=== PATIENT | male | born 1960 | race Two or more races ===

== ENCOUNTER 2021-01-17 19:26 | Emergency (ER) | payer OTHER ==
[~2021-01-17] VITALS: Ht 175.3 cm; Wt 81.6 kg
--- NOTE | 2021-01-17 20:11 | Emergency Room Report ---
History of Present Illness General Chief Complaint: Chest Pain Source: Patient Present Illness HPI Disclaimer: Please note that this report is being documented using [employer] technology. This can lead to erroneous entry secondary to incorrect interpretation by the dictating instrument. HPI: 60-year-old male presents for evaluation of chest pain. Symptoms began suddenly at this afternoon approximately 4 PM. 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 He states he felt sudden pressure over the left side of the chest and over the upper back. He felt weak and near syncope but was caught by a coworker. Denied diaphoresis nausea or vomiting. Chest pain resolved within half an hour. He denies difficulty breathing, shortness of breath, cough, fever or chills. No recent Covid test. Denies vomiting, diarrhea or other changes in his health otherwise. He was in his usual state of health until 4 PM this af ternoon. Did not take any medication prior to arrival aside from his usual propranolol for hypertension and Metformin for diabetes. Non-smoker. Denies alcohol or drugs. PMH: Diabetes, hypertension PSH: Denied Allergies: Denied Social Hx: Denies alcohol, tobacco or drug use Allergies: Coded Allergies: No Known Allergies (Unverified , 01/17/21) COVID-19 Screening Contact w/high risk pt: No Experienced COVID-19 symptoms?: No COVID-19 Testing performed STAFF PSYCHIATRIST: No COVID-19 Screening: Negative COVID-19 COVID-19 Testing Source: [facility] Documentation-PMH Hx Diabetes: Yes Review of Systems All Other Systems: negative except mentioned in HPI Physical Exam Vital Signs Date Time Temp Pulse Resp B/P (MAP) Pulse Ox O2 Delivery O2 Flow Rate FiO2 01/17/21 19:42 97.7 77 20 149/85 (106) 98 Room Air General: Awake and alert, no acute distress HEENT: NC/AT. EOMI. Cardiovascular: RRR. S1 and S2 normal. No murmur appreciated Resp: Normal work of breathing. No cough, wheezing or crackles appreciated Abdomen: Abdomen is soft, nondistended. Nontender Skin: Intact. No abrasions, laceration or rash over the exposed skin MSK: Normal tone and bulk. Moving all extremities. No obvious deformity. Neuro: Awake and alert. Mentating appropriately. Medical Decision Making Diagnostic Impression: Primary Impression: Chest pain ER Course 60-year-old male presenting for evaluation of chest pain. Differential includes but is not limited to ACS, arrhythmia, orthostatic hypotension, vasovagal syncope, dehydration, electrolyte abnormality, pneumonia, pneumothorax, PE among others. Currently chest pain-free. Given aspirin. EKG shows sinus rhythm with slight left axis but no ischemic changes. Chest x-ray unremarkable. Labs including troponin D-dimer negative. Patient is well-appearing though his story is somewhat concerning for cardiac disease. I discussed admission with the patient however he declined. He states he has a primary doctor and he can call them in the morning to set up outpatient testing and reevaluation. He also stated he would return if symptoms returned or if he developed any new symptoms. Patient appears very reasonable and trustworthy and I believe that he would come back should he experience any return of symptoms. Will discharge with PMD follow-up. Laboratory Tests Test 01/17/21 20:09 White Blood Count 3.3 K/UL (4.8-10.8) L Red Blood Count 4.60 M/UL (4.70-6.10) L Hemoglobin 13.5 G/DL (14.2-18.0) L Hematocrit 40.6 % (42.0-52.0) L Mean Corpuscular Volume 88 FL (80-99) Mean Corpuscular Hemoglobin 29.3 PG (27.0-31.0) Mean Corpuscular Hemoglobin Concent 33.3 G/DL (32.0-36.0) Red Cell Distribution Width 13.4 % (11.6-14.8) Platelet Count 304 K/UL (150-450) Mean Platelet Volume 7.7 FL (6.5-10.1) Neutrophils (%) (Auto) % (45.0-75.0) Lymphocytes (%) (Auto) % (20.0-45.0) Monocytes (%) (Auto) % (1.0-10.0) Eosinophils (%) (Auto) % (0.0-3.0) Basophils (%) (Auto) % (0.0-2.0) Differential Total Cells Counted 100 Neutrophils % (Manual) 32 % (45-75) L Lymphocytes % (Manual) 54 % (20-45) H Monocytes % (Manual) 10 % (1-10) Eosinophils % (Manual) 4 % (0-3) H Basophils % (Manual) 0 % (0-2) Band Neutrophils 0 % (0-8) Platelet Estimate Adequate Platelet Morphology Normal Red Blood Cell Morphology Normal D-Dimer < 0.19 mg/L FEU Sodium Level 136 MMOL/L (136-145) Potassium Level 3.8 MMOL/L (3.5-5.1) Chloride Level 100 MMOL/L (98-107) Carbon Dioxide Level 28 MMOL/L (21-32) Anion Gap 8 mmol/L (5-15) Blood Urea Nitrogen 17 mg/dL (7-18) Creatinine 1.1 MG/DL (0.55-1.30) Estimated Glomerular Filtration Rate > 60 mL/min (>60) Glucose Level 165 MG/DL (74-106) H Calcium Level 9.6 MG/DL (8.5-10.1) Total Bilirubin 0.3 MG/DL (0.2-1.0) Aspartate Amino Transferase (AST) 17 U/L (15-37) Alanine Aminotransferase (ALT) 26 U/L (12-78) Alkaline Phosphatase 49 U/L (46-116) Troponin I 0.000 ng/mL (0.000-0.056) Total Protein 7.7 G/DL (6.4-8.2) Albumin 4.5 G/DL (3.4-5.0) Globulin 3.2 g/dL Albumin/Globulin Ratio 1.4 (1.0-2.7) EKG Diagnostic Results Troponin ordered: Yes When was troponin ordered?: Jan 17, 2021 EKG Time: 19:57 Rhythm: NSR ST Segments: no acute changes Other Impression Sinus rhythm, left axis, normal intervals, no ST segment changes ASA given to the pt in ED: Yes Rhythm Strip Diag. Results Rhythm Strip Time: 19:57 EP Interpretation: yes Rate: 57 Rhythm: NSR, no PVC's, no ectopy Chest X-Ray Diagnostic Results Chest X-Ray Diagnostic Results : Chest X-Ray Ordered: Yes # of Views/Limited/Complete: 1 View Indication: Chest Pain EP Interpretation: Yes Interpretation: no consolidation, no effusion, no pneumothorax, no acute cardiopulmonary disease Impression: No acute disease Electronically Signed by: Electronically signed by Dr. Ti Irizarry MD Last Vital Signs Date Time Temp Pulse Resp B/P (MAP) Pulse Ox O2 Delivery O2 Flow Rate FiO2 01/17/21 19:42 97.7 77 20 149/85 (106) 98 Room Air Ti Irizarry MD Jan 17, 2021 20:11
--- NOTE | 2021-01-17 20:21 | NUR ---
ED Nurse Note: Patient came in with c/o chest pain x4hrs, hx of hypertension and diabetes type 2, patient has increased BP, all other vitals stable, AOx4, and ambulatory, blood and urine specimen sent to lab
[2021-01-17 20:23] VITALS: BP 149/85
[2021-01-17] MEDS ORDERED: Nitroglycerin Subl 0.4mg tab SL PRN (20:30)
[2021-01-17 20:32] LABS: ANION GAP 8 mmol/L (5-15); BLOOD UREA NITROGEN 17 mg/dL (7-18); CALCIUM 9.6 MG/DL (8.5-10.1); CARBON DIOXIDE 28 MMOL/L (21-32); CHLORIDE 100 MMOL/L (98-107); CREATININE 1.1 MG/DL (0.55-1.30); POTASSIUM 3.8 MMOL/L (3.5-5.1); SODIUM 136 MMOL/L (136-145)
[2021-01-17 20:37] LABS: ALANINE AMINOTRANSFERASE 26 U/L (12-78); ALBUMIN 4.5 G/DL (3.4-5.0); ALBUMIN/GLOBULIN RATIO 1.4 (1.0-2.7); ALKALINE PHOSPHATASE 49 U/L (46-116); ASPARTATE AMINO TRANSFERASE 17 U/L (15-37); BILIRUBIN,TOTAL 0.3 MG/DL (0.2-1.0)
[2021-01-17 20:46] LABS: HEMATOCRIT 40.6 % (42.0-52.0); HEMOGLOBIN 13.5 G/DL (14.2-18.0); MEAN CORPUSCULAR VOLUME 88 FL (80-99); PLATELET COUNT 304 K/UL (150-450); RED CELL DISTRIBUTION WIDTH 13.4 % (11.6-14.8); WHITE BLOOD COUNT 3.3 K/UL (4.8-10.8)
[2021-01-17 21:12] VITALS: BP 152/89
--- NOTE | 2021-01-17 21:13 | NUR ---
ER DISCHARGE NOTE: Patient is cleared to be discharged per ERMD, pt is aox4, on room air, with stable vital signs. pt was given dc and prescription instructions, pt was able to verbalize understanding, pt id band and iv site removed without complications. pt is able to ambulate with steady gait. pt took all belongings.
--- NOTE | 2021-01-18 20:46 | Diagnostic Imaging Report ---
Indication: Chest pain Technique: One view of the chest Comparison: none Findings: Lungs and pleural spaces are clear. The heart size is normal. The aorta is slightly tortuous. Impression: No acute process
--- NOTE | 2021-01-20 15:29 | Cardiology Report ---
APPROVED REPORT EKG Measurement Heart [id number] <Conclusion> Sinus bradycardia Otherwise normal ECG
== END 2021-01-17 21:13 | disposition home or self-care (01) ==
LOC: EMR 20:00
DX: R07.9 Chest pain, unspecified (principal); E11.9 Type 2 diabetes mellitus without complications; I10 Essential (primary) hypertension; Z79.899 Other long term (current) drug therapy
CPT/HCPCS: 36415; 71045; 80053; 84484; 85007; 85025; 85379; 93005; 99284